=== PATIENT | female | born 1955 | race Two or more races ===

== ENCOUNTER → 2023-03-05 | Emergency (ER) | payer OTHER ==
[~2023-03-05] VITALS: Ht 165.1 cm; Wt 63.5 kg
[~2023-03-05] MED LIST: MELATONIN3 M3 PO
== END | disposition home or self-care (01) ==
LOC: ER 17:48
DX: S61.421A Laceration with foreign body of right hand, initial encounter (principal); W25.XXXA Contact with sharp glass, initial encounter; Y93.89 Activity, other specified; Y92.89 Other specified places as the place of occurrence of the external cause